=== PATIENT | male | born 1990 ===

== ENCOUNTER 2021-01-19 08:42 | Outpatient (CLI) | payer OTHER ==
--- NOTE | 2021-01-19 09:13 | SLEEP CARE CONSULTATION ---
Information from patient questionnaire entered by Lisa Norris. I have reviewed and concur with the information entered by Lisa Norris. This document represents the service I personally performed and the decisions made by me, Daisy Cline ARNP. History of Present Illness Service Date and Time: 01/19/2021 0842 Reason for Visit: New patient Chief Complaint: reports: Unrefreshed sleep, Snoring. denies: Excessive daytime sleepiness, Observed pauses in breathing, Fatigue, Frequent awakenings at night Date of Onset: about a year Usual bedtime: 11:30 pm Time it takes to fall asleep: less than 5 minutes Snores at night: Yes Observed to quit breathing while asleep: No Sleeps alone due to snoring: No Number of times waking at night: 1 Reasons for waking at night: reports: Bathroom. denies: Choking, Snoring, Gasping for air Toss, Turn, or Twitch while sleeping: Yes Recalls having dreams: Yes Usually gets out of bed at: 6:30 am Feels refreshed in the morning: No Morning headache: Yes (only lasts 20 minutes; 1 x a week) Sleepy or fatigued during the day: No Ever fallen asleep while driving: No Takes day naps: No Dreams during day naps: Yes Prior sleep studies: No Additional HPI information: I had the pleasure of seeing NICK GARYJOELDUNCAN today regarding the possibility of him having a sleep disorder. His current complaint is snoring. He also has had some morning headaches and unrefreshed sleep. His is concerned about his loud snoring. She is and due next week. She has to wear ear plugs to sleep in same bed. She will wake him to turn on his left side. He snores less on his left side than his back or right side. His snoring is louder when he is really tired. His parents both snored and his father had surgery to try to reduce snoring but it did not help, possible tonsillectomy. He denies medical problems and takes no medications currently. 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 Patient is and lives in [place]. Have you smoked in the past 12 months: Yes Cigarettes per day (20/pack): 4 Years of smokin Smoking Pack Years: 1.6 Alcohol use: Yes Alcohol amount and frequency: 1-2 drinks every other week Caffeine use: Yes Caffeine amount and frequency: 2 drinks every day Family History Family history of sleep disordered breathing: Yes (aunt snores) Family Hx Sleep Apnea: Mother: Snoring, Father: Snoring, Sleep apnea - Untreated, Other: Snoring Allergies and Home Medications Drug allergies reviewed: Yes (NKDA) Home medication list reviewed: Yes (no daily medications or supplements) Review of Systems Cardiovascular: denies: high blood pressure Gastrointestinal: denies: heartburn Neurological: denies: headaches Psychiatric: denies: Attention Deficit Hyperactivity, anxiety, depression, mood disorder Ear/Nose/Throat: reports: wisdom teeth removed. denies: tonsillectomy Endocrine: denies: thyroid disease Immunologic: denies: allergies to food or environment Physical Exam Blood Pressure: 123/81 Cuff size: wrist Heart Rate: 50 O2 Saturation: 97 Height: 5 ft 5 in Weight: 178 lb Body Mass Index: 29.6 BMI Classification: Overweight Neck circumference: 14.5 (inches) Nostrils: patent to airflow Mouth and throat: narrow oropharynx Soft palate: long Hard palate: arched Uvula: normal Uvula visualization: 50% Mallampati Class II Tongue: enlarged in size with teeth child on lateral edges Tonsils: 2+ Chin and jaw: normal size and position Neck: normal w/o lymphadenopathy or thyromegaly Heart: regular rate and rhythm Lungs: clear bilaterally Impression and Plan 1. Suspected Obstructive Sleep Apnea-Hypopnea Syndrome, as suggested by a history of loud and irregular snoring, morning headache, and unrefreshed sleep. Narrow oropharynx and obesity are common predisposing factors for obstructive sleep apnea-hypopnea syndrome. I recommend proceeding to polysomnography to confirm the diagnosis and to assess severity. If the patient has significant sleep disordered breathing, a manual CPAP titration study will also be performed to find the optimal treatment pressure. I informed the patient of what the sleep studies involve and after some discussion, obtained agreement to proceed. The pathophysiology of obstructive sleep apnea-hypopnea syndrome was discussed with the patient and health risks of cardiovascular and cerebrovascular disease if not treated. Risks of drowsy driving discussed in detail and patient advised to avoid long distance driving and to heat treat puller at the first sign of drowsiness. Patient agreed to plan. * Schedule polysomnography +- manual CPAP titration study and return in 1-2 weeks after the study to discuss result and initiate therapy. * Avoid long distance driving or driving when feeling sleepy. * Avoid alcohol, sedative and muscle relaxant around bedtime. * Attempt to lose weight. * Review instructions provided by trained office staff on how to prepare for the sleep study. * Return for follow-up after sleep study completed. Counseling Topics: Weight loss health impact Visit Type: In Office Time Spent with Patient (minutes): 30 Provider Statement: I spent 100% of the Face to Face Visit with the patient with greater than 50% spent counseling the patient and coordination of care.
[2021-01-19 09:14] VITALS: BP 123/81
== END 2021-01-19 08:43 | disposition home or self-care (01) ==
LOC: SC 08:42
PROVIDERS: ATTEND Nurse Practitioner Family
DX: G47.8 Other sleep disorders (principal); R51.9 Headache, unspecified; R06.83 Snoring; F17.210 Nicotine dependence, cigarettes, uncomplicated; E66.3 Overweight; Z68.29 Body mass index [BMI] 29.0-29.9, adult
CPT/HCPCS: 99203; 99212

== ENCOUNTER 2021-02-04 13:13 | Outpatient (CLI) | payer OTHER | END 2021-02-04 13:14 | disposition home or self-care (01) | LOC: SC 13:13 | PROVIDERS: ATTEND Nurse Practitioner Family | DX: R06.83 Snoring (principal); E66.3 Overweight; Z68.29 Body mass index [BMI] 29.0-29.9, adult | CPT/HCPCS: 95806 ==

== ENCOUNTER 2021-02-23 16:06 | Outpatient (CLI) | payer OTHER ==
--- NOTE | 2021-02-23 16:20 | SLEEP CARE CONSULTATION ---
Information from patient questionnaire entered by Deanna Roberts. I have reviewed and concur with the information entered by Deanna Roberts. This document represents the service I personally performed and the decisions made by , Daisy Cline ARNP. History of Present Illness Service Date and Time: 02/23/2021 1606 Initial [place] Sleepiness Scale score: 8 (in 2020) Current [place] Sleepiness Scale score: 6 Additional HPI information: NICK SILVA returns for follow up and results of the recently performed home sleep study. The patient was informed of the following findings: No significant sleep disordered breathing with AHI of 0.8 and shahid oxygen saturation of 89%. I explained the pathophysiology behind obstructive sleep apnea. Patient does not have sleep apnea and was advised how weight gain could increase the risk of developing sleep apnea in the future. I strongly encouraged the patient to lose weight. Patient has mild snoring. Snoring can be reduced by weight loss. Weight loss is best achieved with diet consult. Patient instructed to contact PCP for referral. Snoring can also be treated with an oral appliance from a dentist. Advised to check insurance coverage. In addition, an ENT evaluation can be do to see if other treatment is indicated. Patient counseled not drink alcohol less than 4 hours before bedtime as it can increase snoring and apnea. Patient was cautioned about risks of drowsy driving until sleepiness symptoms resolve. Sleep Study - Results Type of Sleep Study: Home sleep study Prior sleep studies: No Polysomnography/Home Sleep Study results: Physician Impression: The quality of the study is good. The length of the study is adequate (> 240 minutes). Please also see the tabulated and graphic data. 1. No significant sleep-disordered breathing, with an AHI of 0.8/hr and shahid SaO2 of 89%. During the study, the patient had 3 apneas (3 obstructive, 0 central, 0 mixed) and 1 hypopnea. The longest episode lasted 51.0 seconds. The patient slept adequately in supine position (supine AHI was 0.7 and non-supine, 0.83). 2. Hypoxemia (ICD-10 R09.02), minimal, with the lowest oxygen saturation of 89 % and 0.1 minutes with SaO2 under 90%. Baseline oxygen saturation was normal (Average oxygen saturation was 95%). Allergies and Home Medications Home medication list reviewed: Yes (no changes) Review of Systems Review of systems same as previous: Yes (no changes) Physical Exam Heart Rate: 60 O2 Saturation: 98 Height: 5 ft 5 in Weight: 176 lb Body Mass Index: 29.2 BMI Classification: Overweight Impression and Plan Snoring but no significant sleep disordered breathing. Patient is definitely more concerned about the snoring and reducing it. Patient advised that often weight loss will reduce snoring as well as apnea risk. An oral appliance can also be used for snoring. This would require a dental consultation. Patient cautioned not to use other online appliances as can cause bite issues. A list of accredited dentists in [facility] and one local dentist who makes oral appliances available in office. Patient is advised to check if insurance will cover. An ENT consult can also be helpful to determine if any other treatment is an option. * Attempt to lose weight * Avoid alcohol consumption near bedtime * The patient is cautioned about driving until sleepiness is completely resolved. * Return as needed for follow up. Counseling Topics: Weight loss health impact Visit Type: In Office Time Spent with Patient (minutes): 11 Provider Statement: I spent 100% of the Face to Face Visit with the patient with greater than 50% spent counseling the patient and coordination of care.
== END 2021-02-23 16:07 | disposition home or self-care (01) ==
LOC: SC 16:06
PROVIDERS: ATTEND Nurse Practitioner Family
DX: R06.83 Snoring (principal); R51.9 Headache, unspecified; G47.8 Other sleep disorders; F17.210 Nicotine dependence, cigarettes, uncomplicated; E66.3 Overweight; Z68.29 Body mass index [BMI] 29.0-29.9, adult
CPT/HCPCS: 99212

== ENCOUNTER 2021-05-18 21:16 | Emergency (ER) | payer OTHER ==
[2021-05-18 21:24] VITALS: BP 149/82
[2021-05-18] MEDS ORDERED: cefTRIAXone 1 GM VIAL IM STA (22:01)
[2021-05-18] MEDS ORDERED: LIDOCAINE 1% 2 ML VIAL MC ONE (22:01)
[2021-05-18] MEDS ORDERED: AMOX/CLAV 875 MG/125 MG TABLET PO STA (22:02)
--- NOTE | 2021-05-18 22:04 | ED Physician Documentation ---
History of Present Illness - Stated complaint Stated Complaint: CAT BITES - Chief complaint Chief Complaint: Laceration - Additonal information Additional information: 30-year-old male presents emergency department for evaluation of a cat bite wound to his left hand. He was trying to feed his cat at home who has not been feeding well and the cat became angry and bit him. He house to puncture wounds. One on the dorsum of his hand near the MCP of the index finger and another between the MCP joints of the index and middle finger. He did not think much of this wound initially but as it is gone on he has developed some progressive erythema and tenderness. No drainage. No history of similar. This patient's Vaccines are up-to-date and patient's tetanus is up-to-date. Patient is right-hand dominant. Review of Systems Constitutional: reports: Reviewed and negative Eyes: reports: Reviewed and negative Nose: reports: Reviewed and negative Cardiac: reports: Reviewed and negative Respiratory: reports: Reviewed and negative Skin: reports: Other (Cat bite wound dorsum of left hand) PD PAST MEDICAL HISTORY - Present Medications Home Medications: Ambulatory Orders Medication Instructions Recorded Confirmed Amox/Clav 875/125 [Augmentin] 1 each PO Q12H #20 tablet 05/18/21 - Allergies Allergies/Adverse Reactions: Allergies Allergy/AdvReac Type Severity Reaction Status Date / Time No Known Drug Allergies Allergy Verified 05/18/21 21:24 PD ED PE EXPANDED - Extremities Extremities: Left hand (Swelling and erythema on the dorsum of the left hand that extends from the base of the MCP Of the index finger to the MCP of the thumb. Tenderness to palpation. No drainage. Patient is able to make a full grasp and extend fingers fully. ), Other (No tenderness along the flexor tendons of the left index or middle finger. No pain with passive extension though there is pain with active flexion.) Results - Vitals Vitals: Vital Signs - 24 hr 05/18/21 21:21 Temperature 36.6 C Heart Rate 76 Respiratory 16 Rate Blood Pressure 149/82 H O2 Saturation 98 Oxygen O2 Source Room air - Rads (name of study) right hand Radiology: EMP read indepedently (soft tissue swelling; no foreign body) PD MEDICAL DECISION MAKING - ED course Complexity details: d/w patient ED course: 30-year-old male presents emergency department for evaluation of a left hand cat bite wound sustained this morning. Patient's tetanus is up-to-date. He has developed swelling mostly along the dorsum of the hand. There are no secondary signs at this time to suggest flexor tenosynovitis. Patient was given a gram of ceftriaxone and Augmentin here in the emergency department and will be discharged with Augmentin for 10 days. Will recommend warm compress on the hand. Discussed that if symptoms worsen or get signs of tenosynovitis he should return immediately to the ER or an ER with appropriate hand surgery. Departure - Departure Disposition: 01 Home, Self Care Clinical Impression: Cellulitis of left hand Cat bite of hand Qualifiers: Encounter type: initial encounter Laterality: left Qualified Code(s): S61.452A - Open bite of left hand, initial encounter; W55.01XA - Bitten by cat, initial encounter Condition: Stable Record reviewed to determine appropriate education?: Yes Instructions: Cellulitis Dc, ED Bite Cat Prescriptions: Amox/Clav 875/125 [Augmentin] 1 each PO Q12H #20 tablet Comments: Sadiq gonsalves were seen in the emergency department today for a cat bite wound on your left hand. The x-ray does not show any broken teeth in your hand. However you do have early bacterial infection or cellulitis. In some cases infection from cat bites can lead to infection around the tendons or joint. You were given your first doses of antibiotics here in the emergency department. Tomorrow morning you must fill the prescription for the Augmentin and begin taking twice daily for the next 10 days. It is important that you please a warm compress on your left hand for 10 minutes 3 times a day. If despite the antibiotics you have any increased redness, fevers red streaking worsening pain or milky drainage please return immediately to the ER.
--- NOTE | 2021-05-19 08:19 | XRAY Report ---
PROCEDURE: Hand 2 View LT INDICATIONS: cat bite; r/o fb TECHNIQUE: 2 views of the hand(s) acquired. COMPARISON: None FINDINGS: Bones: No fractures or dislocations. No suspicious bony lesions. Soft tissues: No suspicious soft tissue calcifications. No radiodense foreign bodies. IMPRESSION: No fracture. No osseous lesion. If there are persistent symptoms or continued clinical concern for pa thology, then repeat plain film radiographs (7-10 days) or advanced imaging (CT, MR, bone scan) shoul d be considered for further evaluation. Reviewed by: Felecia Preciado MD, PhD on 05/19/2021 8:17 AM PDT Approved by: Felecia Preciado MD, PhD on 05/19/2021 8:17 AM PDT Station ID: [id number]
== END 2021-05-18 22:44 | disposition home or self-care (01) ==
LOC: ED 21:16
DX: L03.114 Cellulitis of left upper limb (principal); W55.01XA Bitten by cat, initial encounter
CPT/HCPCS: 73120; 99281; 99283; A9270

== ENCOUNTER 2021-10-03 08:00 | Outpatient (CLI) | payer OTHER | END 2021-10-03 23:59 | LOC: LAB 08:00 | PROVIDERS: ATTEND Physician Assistant Medical | DX: U07.1 COVID-19 (principal) ==

== ENCOUNTER 2023-08-22 08:46 | Emergency (ER) | payer OTHER ==
[2023-08-22] MEDS ORDERED: diphenhydrAMINE INJ 50 MG/ML VIAL IM STA (12:00)
[2023-08-22] MEDS ORDERED: KETOROLAC 60 MG/2 ML VIAL IM STA (12:00)
[2023-08-22] MEDS ORDERED: DROPERIDOL 5 MG/2 ML VIAL IM STA (12:00)
--- NOTE | 2023-08-22 12:03 | ED Physician Documentation ---
History of Present Illness - Stated complaint Stated Complaint: CARDENAS,SORE THROAT - Chief complaint Chief Complaint: Neuro - History obtained from History obtained from: Patient - History of Present Illness Timing: How many days ago (Gradual onset x 3 days) Pain level max: 7 Pain level now: 7 - Additonal information Additional information: Patient is a 33-year-old male who presents to the emergency department left- sided headache for 3 days. Worse with eating, drinking. He states he has sensitivity to light and sound. Took Aleve x 1 without relief. No history of headaches. No trauma. No fevers. No chills. No nausea or vomiting. Denies any dental pain. No ear pain. He does vape. No vision changes. Denies any medications at home. Denies any other drug use. No numbness or tingling. No focal neurological deficits. Review of Systems Constitutional: denies: Fever, Chills Eyes: reports: Photophobia Ears: denies: Ear pain Nose: denies: Rhinorrhea / runny nose, Congestion Throat: denies: Sore throat Cardiac: denies: Chest pain / pressure, Palpitations Respiratory: denies: Dyspnea, Cough GI: denies: Abdominal Pain, Nausea, Vomiting, Diarrhea Skin: denies: Rash Musculoskeletal: denies: Neck pain, Back pain Neurologic: denies: Focal weakness, Numbness, Seizure, Confused, LOC PD PAST MEDICAL HISTORY - Past Medical History Past Medical History: Yes Cardiovascular: None Respiratory: None Neuro: None Endocrine/Autoimmune: None GI: None : None HEENT: None Psych: None Musculoskeletal: None Derm: None - Past Surgical History Past Surgical History: No - Present Medications Home Medications: Ambulatory Orders Medication Instructions Recorded Confirmed Amox/Clav 875/125 [Augmentin] 1 tab PO Q12H #20 tablet 08/22/23 Cetirizine HCl/Pseudoephedrine 1 tab PO BID PRN #20 tab 08/22/23 [Zyrtec-D ER 5 mg-120 mg Tablet] HYDROcod/ACETAM 5/325 [[place] 5/325] 1 - 2 ea PO Q6H PRN #10 tablet 08/22/23 predniSONE [Deltasone] 40 mg PO DAILY #10 tablet 08/22/23 - Allergies Allergies/Adverse Reactions: Allergies Allergy/AdvReac Type Severity Reaction Status Date / Time No Known Drug Allergies Allergy Verified 08/22/23 09:05 - Social History Does the pt smoke?: No Smoking Status: Never smoker Does the pt drink ETOH?: No Does the pt have substance abuse?: No - Immunizations Immunizations are current?: Yes - POLST Patient has POLST: No PD ED PE NORMAL - Vitals Vital signs reviewed: Yes - General General: Alert and oriented X 3, No acute distress - HEENT HEENT: Atraumatic, PERRL, EOMI, Ears normal, Moist mucous membranes, Pharynx benign, Other (mild sinus tenderness over the frontal or maxillary sinuses) - Neck Neck: Supple, no meningeal sign - Cardiac Cardiac: RRR, Strong equal pulses - Respiratory Respiratory: No respiratory distress, Clear bilaterally - Abdomen Abdomen: Soft, Non tender, Non distended - Back Back: No spinal TTP - Derm Derm: Warm and dry - Extremities Extremities: No edema, No calf tenderness / cord - Neuro Neuro: Alert and oriented X 3, 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 Headache greatly improved with self and some pressure behind the left eye, suspect ethmoid sinusitis. We will place on antibiotics, decongestants, steroids and pain medication for home. Will have him follow-up with his doctor for further care. No fevers. Patient is well-appearing, nontoxic. Gradual onset headache. No evidence of a subarachnoid hemorrhage. No evidence of tumor or mass. No neurological deficits. Patient counseled regarding signs and symptoms for which I believe and urgent re-evaluation would be necessary. Patient with good understanding of and agreement to plan and is comfortable going home at this time This document was made in part using voice recognition software. While efforts are made to proofread this document, sound alike and grammatical errors may occur. Departure - Departure Disposition: 01 Home, Self Care Clinical Impression: Headache Qualifiers: Headache type: unspecified Headache chronicity pattern: acute headache Intractability: not intractable Qualified Code(s): R51.9 - Headache, unspecified Sinusitis Qualifiers: Sinusitis location: ethmoidal Chronicity: acute Recurrence: non-recurrent Qualified Code(s): J01.20 - Acute ethmoidal sinusitis, unspecified Condition: Good Instructions: ED Headache Sinus, ED Sinusitis Abx Tx Follow-Up: NICK PARIS MD [Primary Care Provider] - Within 1 week Prescriptions: Amox/Clav 875/125 [Augmentin] 1 tab PO Q12H #20 tablet predniSONE [Deltasone] 40 mg PO DAILY #10 tablet HYDROcod/ACETAM 5/325 [[place] 5/325] 1 - 2 ea PO Q6H PRN #10 tablet PRN Reason: Pain Cetirizine HCl/Pseudoephedrine [Zyrtec-D ER 5 mg-120 mg Tablet] 1 tab PO BID PRN #20 tab PRN Reason: nasal congestion Comments: Your prescriptions were sent to [facility] in [place]. Please follow-up with your doctor for further care. Please return if you worsen. I suspect that this is your ethmoid sinus causing your headache and pain. This should improve with the medication over the next few days. Take all antibiotics until gone even if you are feeling better. I am prescribing a short course of narcotic pain medication for you. These are potentially dangerous and addictive medications that should be used carefully. These medications may constipate you. Take an iibb-jbt-homjfcu stool softener ( docusate) twice daily with plenty of water while taking these medications. If you go 24 hours without a bowel movement, take [id number] miralax, per package instructions. Do not drink or drive while taking these medications. If you received narcotic or sedating medications while in the emergency department, do not drive for 24 hours. Store this medication in a safe, secure place and out of reach of children. It is a violation of federal law to give or sell this medication to another person or to use in a manner other than prescribed. The ED will not refill narcotic prescriptions, including prescriptions lost or stolen. To dispose of unwanted medications: 1. [facility] at [address] in [place] has a medication drop box. They accept prescription medications (in pill form) Sunday through Sunday 9:00 a.m. to 5:00 p.m. 2. The [facility] [employer] accepts prescription medications (in pill form only) for disposal year round. Call for more information. 3. Contact the [facility] for the next [facility] sponsored prescription drug collection event. , [phone], or [phone]; Forms: PCP List
[2023-08-22 13:11] VITALS: BP 179/81; O2SAT 99
== END 2023-08-22 13:04 | disposition home or self-care (01) ==
LOC: ED 08:46
DX: J01.20 Acute ethmoidal sinusitis, unspecified (principal); R51.9 Headache, unspecified
CPT/HCPCS: 96372; 99283; J1200

== ENCOUNTER 2023-08-25 14:26 | Outpatient (CLI) | payer OTHER | END 2023-08-25 14:27 | disposition critical access hospital (66) | LOC: EMS 14:26 | DX: R46.89 Other symptoms and signs involving appearance and behavior (principal); R46.4 Slowness and poor responsiveness | CPT/HCPCS: A0425; A0427 ==

== ENCOUNTER 2023-08-25 14:47 | Emergency (ER) | payer OTHER ==
--- NOTE | 2023-08-25 15:02 | ED Physician Documentation ---
PD HPI ALTERED MENTAL STATUS - Stated complaint Stated Complaint: WEAKNESS/AMS - Chief complaint Chief Complaint: Neuro - History obtained from History obtained from: Patient, Family, EMS - History of Present Illness Timing - onset: How many days ago (2) Timing - duration: Days (2) Timing - details: Gradual onset, Still present Quality / character: Less responsive Associated symptoms: General weakness (? not endorsed by patient) Contributing factors: New medication (abx, decongestant, steroid and narcotic.) Basline status: Alert and oriented X 3, Ambulatory, Independent Similar symptoms before: Has not had sx before Recently seen: Emergency Dept - Additional information Additional information: Sadiq Chauhan is a 33-year-old male was recently diagnosed with sinusitis in the emergency department placed on Augmentin prednisone decongestant and narcotic pain reliever. He had presented to the emergency department with headache. He is now denying any specific symptoms but his has called 911 as she has noted the patient is less responsive than normal is not interacting normally with her and the patient himself as a historian appears oriented but does not feel that he has a problem. He shrugs his shoulders. He has a blunted affect and speech latency. Review of Systems Constitutional: denies: Fever Eyes: denies: Decreased vision Ears: denies: Ear pain Nose: denies: Rhinorrhea / runny nose, Congestion Throat: denies: Sore throat Cardiac: denies: Chest pain / pressure, Palpitations Respiratory: denies: Dyspnea, Cough GI: denies: Abdominal Pain, Nausea, Vomiting, Constipation, Diarrhea : denies: Dysuria, Frequency PD PAST MEDICAL HISTORY - Past Medical History Past Medical History: No Cardiovascular: None Respiratory: None Neuro: None Endocrine/Autoimmune: None GI: None : None HEENT: None Psych: None Musculoskeletal: None Derm: None - Past Surgical History Past Surgical History: No - Present Medications Home Medications: Ambulatory Orders Medication Instructions Recorded Confirmed Amox/Clav 875/125 [Augmentin] 1 tab PO Q12H #20 tablet 08/22/23 Cetirizine HCl/Pseudoephedrine 1 tab PO BID PRN #20 tab 08/22/23 [Zyrtec-D ER 5 mg-120 mg Tablet] HYDROcod/ACETAM 5/325 [[place] 5/325] 1 - 2 ea PO Q6H PRN #10 tablet 12/06/23 predniSONE [Deltasone] 40 mg PO DAILY #10 tablet 08/22/23 - Allergies Allergies/Adverse Reactions: Allergies Allergy/AdvReac Type Severity Reaction Status Date / Time No Known Drug Allergies Allergy Verified 08/22/23 09:05 - Social History Does the pt smoke?: No Smoking Status: Never smoker Does the pt drink ETOH?: No Does the pt have substance abuse?: No - Immunizations Immunizations are current?: Yes - POLST Patient has POLST: No PD ED PE NORMAL - Vitals Vital signs reviewed: Yes - General General: Alert and oriented X 3, No acute distress, Well developed/nourished, Other (affect is flat interaction has 1 second speech latency and has some mild delay in execution of motor commands. ) - HEENT HEENT: Atraumatic, PERRL, EOMI, Ears normal, Moist mucous membranes, Pharynx benign, Dentition benign, Other (There is an asymetric smile less motor tone on the right. The patient indicates this is his normal smile when shown his face on iphone. ) - Neck Neck: Supple, no meningeal sign, No bony TTP - Cardiac Cardiac: RRR, No murmur - Respiratory Respiratory: No respiratory distress, Clear bilaterally - Abdomen Abdomen: Soft, Non tender - Back Back: No CVA TTP, No spinal TTP - Derm Derm: Normal color, Warm and dry, No rash - Extremities Extremities: No deformity, No edema - Neuro Neuro: Alert and oriented X 3, director of music 2-12 intact, No motor deficit, No sensory deficit, Normal speech Eye Opening: Spontaneous Motor: Obeys Commands Verbal: Oriented GCS Score: 15 - Psych Psych: Normal mood, Normal affect Results - Vitals Vitals: Vital Signs - 24 hr 08/25/23 14:56 Temperature 36.8 C Heart Rate 88 Respiratory 16 Rate Blood Pressure 148/81 H O2 Saturation 99 Oxygen O2 Source Room air - Labs Labs: Laboratory Tests 08/25/23 08/25/23 08/25/23 15:06 15:06 15:06 WBC 13.6 H RBC 4.27 L Hgb 13.8 L Hct 38.9 L MCV 91.1 MCH 32.3 H MCHC 35.5 RDW 11.5 L Plt Count 191 MPV 9.9 Neut # (Auto) Not Reportable Lymph # (Auto) Not Reportable [place] # (Auto) Not Reportable Eos # (Auto) Not Reportable Baso # (Auto) Not Reportable Absolute Nucleated RBC Not Reportable Total Counted 100 Band Neuts % (Manual) 1 Reactive Lymphs % (Man) 9 Abnorm Lymph % (Manual) 0 Nucleated RBC % Not Reportable Neutrophils # (Manual) 9.5 H Lymphocytes # (Manual) 2.4 Monocytes # (Manual) 1.6 H Eosinophils # (Manual) 0.0 Basophils # (Manual) 0.0 Differential Comment MANUAL DIFFERENTIAL Platelet Estimate NORMAL (130-450,000) Platelet Morphology NORMAL APPEARANCE RBC Morph Micro Appear NORMAL APPEARANCE Sodium 121 L Potassium 3.7 Chloride 86 L Carbon Dioxide 28 Anion Gap 7.0 BUN 13 Creatinine 0.8 Estimated GFR (MDRD) 111 Glucose 138 H Lactic Acid 1.9 Calcium 8.8 Total Bilirubin 0.9 AST 17 ALT 21 Alkaline Phosphatase 59 Total Protein 7.1 Albumin 4.2 Globulin 2.9 Albumin/Globulin Ratio 1.4 Lipase 27 TSH Random Cortisol Urine Color Urine Clarity Urine pH Ur Specific [place] Urine Protein Urine Glucose (UA) Urine Ketones Urine Occult Blood Urine Nitrite Urine Bilirubin Urine Urobilinogen Ur Leukocyte Esterase Urine RBC Urine WBC Ur Squamous Epith Cells Urine Bacteria Ur Microscopic Review Urine Culture Comments Urine Sodium Urine Opiates Screen Ur Buprenorphine Scrn Ur Oxycodone Screen Urine Methadone Screen Ur Barbiturates Screen Ur Tricyclics Screen Ur Phencyclidine Scrn Ur Amphetamine Screen U Methamphetamines Scrn U Benzodiazepines Scrn Urine Cocaine Screen U Cannabinoids Screen Ur Drug Screen Comment 08/25/23 08/25/23 08/25/23 15:06 15:24 17:44 WBC RBC Hgb Hct MCV MCH MCHC RDW Plt Count MPV Neut # (Auto) Lymph # (Auto) [place] # (Auto) Eos # (Auto) Baso # (Auto) Absolute Nucleated RBC Total Counted Band Neuts % (Manual) Reactive Lymphs % (Man) Abnorm Lymph % (Manual) Nucleated RBC % Neutrophils # (Manual) Lymphocytes # (Manual) Monocytes # (Manual) Eosinophils # (Manual) Basophils # (Manual) Differential Comment Platelet Estimate Platelet Morphology RBC Morph Micro Appear Sodium 122 L Potassium 3.5 Chloride 88 L Carbon Dioxide 27 Anion Gap 7.0 BUN 14 Creatinine 0.7 Estimated GFR (MDRD) 129 Glucose 123 H Lactic Acid Calcium 8.9 Total Bilirubin AST ALT Alkaline Phosphatase Total Protein Albumin Globulin Albumin/Globulin Ratio Lipase TSH 0.85 Random Cortisol 21.2 Urine Color Urine Clarity Urine pH Ur Specific [place] Urine Protein Urine Glucose (UA) Urine Ketones Urine Occult Blood Urine Nitrite Urine Bilirubin Urine Urobilinogen Ur Leukocyte Esterase Urine RBC Urine WBC Ur Squamous Epith Cells Urine Bacteria Ur Microscopic Review Urine Culture Comments Urine Sodium 52.0 Urine Opiates Screen Ur Buprenorphine Scrn Ur Oxycodone Screen Urine Methadone Screen Ur Barbiturates Screen Ur Tricyclics Screen Ur Phencyclidine Scrn Ur Amphetamine Screen U Methamphetamines Scrn U Benzodiazepines Scrn Urine Cocaine Screen U Cannabinoids Screen Ur Drug Screen Comment 08/25/23 18:22 WBC RBC Hgb Hct MCV MCH MCHC RDW Plt Count MPV Neut # (Auto) Lymph # (Auto) [place] # (Auto) Eos # (Auto) Baso # (Auto) Absolute Nucleated RBC Total Counted Band Neuts % (Manual) Reactive Lymphs % (Man) Abnorm Lymph % (Manual) Nucleated RBC % Neutrophils # (Manual) Lymphocytes # (Manual) Monocytes # (Manual) Eosinophils # (Manual) Basophils # (Manual) Differential Comment Platelet Estimate Platelet Morphology RBC Morph Micro Appear Sodium Potassium Chloride Carbon Dioxide Anion Gap BUN Creatinine Estimated GFR (MDRD) Glucose Lactic Acid Calcium Total Bilirubin AST ALT Alkaline Phosphatase Total Protein Albumin Globulin Albumin/Globulin Ratio Lipase TSH Random Cortisol Urine Color YELLOW Urine Clarity HAZY Urine pH 6.5 Ur Specific [place] 1.015 Urine Protein 100 H Urine Glucose (UA) NEGATIVE Urine Ketones NEGATIVE Urine Occult Blood MODERATE H Urine Nitrite NEGATIVE Urine Bilirubin NEGATIVE Urine Urobilinogen 1 (NORMAL) Ur Leukocyte Esterase NEGATIVE Urine RBC 11-25 H Urine WBC 0-3 Ur Squamous Epith Cells RARE Squamous Urine Bacteria Rare Ur Microscopic Review INDICATED Urine Culture Comments NOT INDICATED Urine Sodium Urine Opiates Screen NEGATIVE Ur Buprenorphine Scrn NEGATIVE Ur Oxycodone Screen NEGATIVE Urine Methadone Screen NEGATIVE Ur Barbiturates Screen NEGATIVE Ur Tricyclics Screen NEGATIVE Ur Phencyclidine Scrn NEGATIVE Ur Amphetamine Screen NEGATIVE U Methamphetamines Scrn NEGATIVE U Benzodiazepines Scrn NEGATIVE Urine Cocaine Screen NEGATIVE U Cannabinoids Screen NEGATIVE Ur Drug Screen Comment CUTOFF CONC BELOW: - Rads (name of study) Sinus CT Relevant Findings:: Prelim report reviewed (Impression: Mild sinus disease as above most prominent within the ethmoid sinuses.), EMP independent interpretation of test, See rad report head CT Relevant Findings:: Prelim report reviewed (Impression no acute intracranial pathology.) Procedures - IVC sono (time) 1550 Bedside IVC sono: IVC measures (cm) (1.72), IVC collapsed c insp (cm) (1.26), Euvolemia PD Medical Decision Making - ED course Complexity details: reviewed old records, reviewed results, re-evaluated patient, considered differential, d/w patient Reviewed Lab Results: We reviewed a complete blood cell count showing an elevated white blood cell count of 13.6 hemoglobin and hematocrit were mildly depressed at 13.8 and 38.9 platelets are normal at 191,000 the differential shows an excess of neutrophils and monocytes we have no comparisons for this patient previously. Chemistries showed a serum sodium of 121 a potassium of 3.7 chloride of 86 BUN of 13 creatinine 0.8 glucose of 138. Lactate was normal at 1.9 liver function normal.The TSH was normal at 0.85 random cortisol normal at 21.2. Urine sodium was elevated at 52 urinalysis shows moderate occult blood and 11-25 red blood cells per high-powered field no evidence of infection with a specific gravity of 1.015 toxicology is negative. A second chemistry panel shows an improved sodium of 122 1 whole point, similar with chloride at 88. My interpretation of these laboratory values in this 33-year-old male with an altered level of consciousness is that his hyponatremia is likely the cause of his altered mentation. In the workup of the hyponatremia the patient appears euvolemic on interrogation of the IVC with POCUS, he has normal TSH and cortisol levels. He does have elevated urine sodium at 52. 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 An etiology for his SIADH is not apparent initially. ED course: 33-year-old male with hyponatremia of 121 has a blunted affect and speech latency and does appear altered. 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 He is treated in the emergency department with 150 mL of 3% saline bringing his sodium up only one point. A second bolus is administered. At shift change his care is turned over to Dr. Lanier with a second bolus of hypertonic saline and further evaluation pending. Departure - Departure Disposition: 66 [facility] DC/Xfer Clinical Impression: Hyponatremia Altered mental status Qualifiers: Altered mental status type: stupor Qualified Code(s): R40.1 - Stupor Forms: PCP List
[2023-08-25 15:10] LABS: BASOPHILS % (AUTO) 0.2 %; EOSINOPHILS % (AUTO) 0.1 %; HCT - HEMATOCRIT 38.9 % (42.0-52.0); HGB - HEMOGLOBIN 13.8 g/dL (14.0-18.0); LYMPHOCYTES % (AUTO) 15.8 %; MEAN CORPUSCULAR HEMOGLOBIN 32.3 pg (27.0-31.0); MEAN CORPUSCULAR HGB CONC 35.5 g/dL (32.0-36.0); MEAN CORPUSCULAR VOLUME 91.1 fL (80.0-94.0); MEAN PLATELET VOLUME 9.9 fL (7.4-11.4); MONOCYTES % (AUTO) 12.4 %; NEUTROPHILS % (AUTO) 71.1 %; PLT - PLATELET COUNT 191 10^3/uL (130-450); RED BLOOD COUNT 4.27 10^6/uL (4.70-6.10); RED CELL DISTRIBUTION WIDTH 11.5 % (12.0-15.0); WHITE BLOOD COUNT 13.6 x10^3/uL (4.8-10.8)
[2023-08-25 15:14] LABS: ABNORMAL LYMPHS % (MANUAL) 0 %
[2023-08-25 15:24] LABS: ALBUMIN 4.2 g/dL (3.2-5.5); ALBUMIN/GLOBULIN RATIO 1.4 (1.0-2.2); BILIRUBIN,TOTAL 0.9 mg/dL (0.2-1.0); CALCIUM 8.8 mg/dL (8.5-10.3); CREATININE 0.8 mg/dL (0.6-1.3); POTASSIUM 3.7 mmol/L (3.5-4.5); TOTAL PROTEIN 7.1 g/dL (6.4-8.9)
[2023-08-25 15:37] LABS: BAND NEUTROPHILS % (MANUAL) 1 %; DIFFERENTIAL COMMENT MANUAL DIFFERENTIAL; LYMPHOCYTES # (MANUAL) 2.4 10^3/uL (1.5-3.5); LYMPHOCYTES % (MANUAL) 9 %; MONOCYTES # (MANUAL) 1.6 10^3/uL (0.0-1.0); NEUTROPHILS # (MANUAL) 9.5 10^3/uL (1.5-6.6); PLATELET ESTIMATE, MANUAL NORMAL (130-450,000) (NORMAL); PLATELET MORPHOLOGY NORMAL APPEARANCE (NORMAL); RBC MORPHOLOGY (MULTIPLE) NORMAL APPEARANCE (NORMAL); REACTIVE LYMPHS % (MANUAL) 9 %
[2023-08-25 16:17] LABS: THYROID STIMULATING HORMONE 0.85 uIU/mL (0.34-5.60)
[2023-08-25 18:28] LABS: BILIRUBIN,URINE NEGATIVE (NEGATIVE); GLUCOSE, URINE (UA) NEGATIVE (NEGATIVE); KETONES,URINE (UA) NEGATIVE (NEGATIVE); LEUKOCYTE ESTERASE, URINE NEGATIVE (NEGATIVE); NITRITE,URINE NEGATIVE (NEGATIVE); OCCULT BLOOD,URINE MODERATE (NEGATIVE); PH,URINE 6.5 PH (5.0-7.5); PROTEIN,URINE 100 mg/dL (NEGATIVE); UROBILINOGEN,URINE 1 (NORMAL) E.U./dL (NORMAL)
--- NOTE | 2023-08-25 18:37 | CT Report ---
PROCEDURE: HEAD WO INDICATIONS: headache, hyponatremia, symptomatic TECHNIQUE: Noncontrast 4.5 mm thick angled axial sections acquired from the foramen magnum to the vertex. For r adiation dose reduction, the following was used: automated exposure control, adjustment of mA and/or kV according to patient size. COMPARISON: Images are degraded by patient motion. FINDINGS: Image quality: Excellent. CSF spaces: Basal cisterns are patent. No extra-axial fluid collections. Ventricles are normal in size and shape. Brain: No midline shift. No intracranial masses or hemorrhage. Burgess-white matter interface is norm al. Skull and face: Calvarium and visualized facial bones are intact, without suspicious lesions. Sinuses: Mucosal thickening of the ethmoid sinuses.. IMPRESSION: No acute intracranial pathology. Reviewed by: Addison Cummings MD on 08/25/2023 5:36 PM [facility] [[email or web address]] Approved by: Addison Cummings MD on 08/25/2023 5:36 PM [facility] [[email or web address]] Station ID: [id number]
[2023-08-25 18:39] LABS: CALCIUM 8.9 mg/dL (8.5-10.3); CREATININE 0.7 mg/dL (0.6-1.3); POTASSIUM 3.5 mmol/L (3.5-4.5)
[2023-08-25 18:39] LABS: BACTERIA,URINE Rare /HPF (None Seen); CLARITY,URINE HAZY (CLEAR); SQUAMOUS EPITHELIAL CELL,UR RARE Squamous (<= Few); WBC,URINE 0-3 /HPF (0-3)
[2023-08-25 18:40] LABS: AMPHETAMINE SCREEN,URINE NEGATIVE (NEGATIVE); BARBITURATE SCREEN,UR NEGATIVE (NEGATIVE); BENZODIAZEPINES SCREEN, URINE NEGATIVE (NEGATIVE); BUPRENORPHINE SCREEN, URINE NEGATIVE (NEGATIVE); COCAINE SCREEN URINE NEGATIVE (NEGATIVE); METHADONE SCREEN, URINE NEGATIVE (NEGATIVE); METHAMPHETAMINES SCREEN, URINE NEGATIVE (NEGATIVE); OPIATE SCREEN, URINE NEGATIVE (NEGATIVE); OXYCODONE SCREEN, URINE NEGATIVE (NEGATIVE); THC CANNABINOID SCREEN, URINE NEGATIVE (NEGATIVE); TRICYCLIC ANTIDEPRESSANT,URINE NEGATIVE (NEGATIVE)
--- NOTE | 2023-08-25 18:40 | CT Report ---
PROCEDURE: SINUS SCREENING WO INDICATIONS: sinusitis with altered LOC TECHNIQUE: Noncontrast 3.0 mm axial images acquired from the frontal sinuses to the mid-sella, with coronal and sagittal reformats. For radiation dose reduction, the following was used: automated exposure control , adjustment of mA and/or kV according to patient size. COMPARISON: None. FINDINGS: Image quality: Excellent. Maxillary Sinuses: No bony remodeling or destruction. Left inferior maxillary mucosal thickening.. Ethmoid Air Cells: Partial opacification of the ethmoid air cells Sphenoid Sinuses: No bony remodeling or destruction. Sinuses are clear. Frontal Sinuses: No bony remodeling or destruction. Opacification of frontal ethmoidal recesses with slight inferior mucosal thickening.. Ostiomeatal Complexes: Ostiomeatal complexes are patent. No Leanna cells. Miscellaneous: Visualized intra-orbital contents are normal. No christian bullosa. No nasal septal d eviation. IMPRESSION: Mild sinus disease as above most prominent within the ethmoid sinuses. Reviewed by: Addison Cummings MD on 08/25/2023 5:39 PM [place] Approved by: Addison Cummings MD on 08/25/2023 5:39 PM [place] Station ID: [id number]
[2023-08-25] MEDS ORDERED: ACETAMINOPHEN 500 MG TABLET PO STA (18:53)
[2023-08-25] MEDS ORDERED: BUFFERED LIDOCAINE 10 ML SYRINGE SUBQ STA (19:00)
[2023-08-25] MEDS ORDERED: LIDOCAINE 1%-EPI 1:100000 20 ML MDV SUBQ STA (19:00)
--- NOTE | 2023-08-25 19:03 | ED Physician Documentation ---
ED Addendum - Addendum Addendum: 08/25/23 19:[address] Olguin at 7 PM shift change. at the bedside History obtained from . He had had a headache for few days and was seen by my partner on the sixth of this month and diagnosed with a sinus infection. He was given steroids, Augmentin, hydrocodone and decongestant. Since then he has been progressively confused. The initially assumed it was related to the pain medication but he is been especially confused over the last 24 hours and at this time was noted to be febrile by the nurse. The patient appears well but is quite confused. He denies headache and has no neck stiffness. That said given the findings of hyponatremia and concern for SIADH meningitis must be considered. We also performed a chest x-ray which does not show a mass or pneumonia. Head CT and sinus CT were negative except for mild sinus disease in the ethmoid sinuses. Discussed with need to perform lumbar puncture and she is agreeable. She states that prior to all of this he was a very healthy man. 08/25/23 19:18 Lumbar puncture done after verbal consent from . He was laying on his left hip and anesthetized prepped and draped with iodine. Accessed at L3-L4 and clear fluid obtained and sent for usual studies. 08/25/23 20:05 CSF reported and white count is 118, predominantly lymphocytes. Pattern most consistent with a viral meningitis. He had already received Rocephin and I will add acyclovir. 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 08/25/23 20:[address] Webb, neurology resident and [facility]. He will discuss with staff and call me back. 08/25/23 21:19 The above neurology resident called me back after discussing with his staff and they are declining transport stating it is too far for transport. I did mention that most of the closer hospitals are full and he may end up boarding in the emergency department for a prolonged length of time which would also be unsafe if they declined the patient but they persistently declined to the patient. I will have the RAYON WINDER call closer facilities with neurology. 08/25/23 22:[address] Bray, neurology at [facility], she feels it is appropriate for this patient, but there and does request that if any CSF is remaining and accompany him so they can run special studies on it. We are awaiting a callback from the hospitalist. Care to Dr. Bangura pending that. Diagnoses: 1. confusion 2. Hyponatremia 3. Viral meningitis or encephalitis Dispo: Transferred to higher level of care Condition: Stable
--- NOTE | 2023-08-25 19:05 | XRAY Report ---
PROCEDURE: Chest 1 View X-Ray INDICATIONS: hyponatremia TECHNIQUE: One view of the chest was acquired. COMPARISON: None. FINDINGS: Surgical changes and devices: None. Lungs and pleura: No pleural effusions or pneumothorax. Lungs are clear. Mediastinum: Mediastinal contours appear normal. Heart size is normal. Bones and chest wall: No suspicious bony lesions. Overlying soft tissues appear unremarkable. IMPRESSION: No acute cardiopulmonary process. Reviewed by: Ashwin Berger MD on 08/25/2023 7:04 PM [facility] Approved by: Ashwin Berger MD on 08/25/2023 7:04 PM [facility] Station ID: [id number]
[2023-08-25] MEDS ORDERED: cefTRIAXone 2 GM VIAL IVP STA (19:19)
[2023-08-25 19:45] LABS: CSF - GLUCOSE 77 mg/dL (45-70); TOTAL PROTEIN,CSF 70 mg/dL (15-45)
[2023-08-25 19:56] LABS: CLARITY,CSF CLEAR (CLEAR); COLOR,CSF COLORLESS (COLORLESS); CSF TUBE # CSF TUBE# 3; CSF XANTHOCHROMIA ABSENT (ABSENT)
[2023-08-25 19:57] LABS: LYMPHOCYTES,CSF 66 % (40-80); MONOCYTES,CSF 30 % (15-45); NEUTROPHILS,CSF 4 % (0-6); RED BLOOD CELL,CSF 2 /mm^3 (0-1)
[2023-08-25 19:59] LABS: WHITE BLOOD CELL,CSF 118 /mm^3 (0-5)
[2023-08-25] MEDS ORDERED: ACYCLOVIR INJ 850 MG in SODIUM CHLORIDE 0.9% 250 ML IV STA (20:00)
[2023-08-25] MEDS ORDERED: SODIUM CHLORIDE 0.9% 1,000 ML IV STA (23:22)
[2023-08-25] MEDS ORDERED: VANCOMYCIN INJ 1.75 GM in SODIUM CHLORIDE 0.9% 500 ML IV STA (23:22)
[2023-08-25] MEDS ORDERED: VANCOMYCIN 1 GM VIAL ONE (23:33)
[2023-08-26 00:56] VITALS: BP 139/84; O2SAT 96
[2023-08-26] MEDS ORDERED: ACYCLOVIR INJ 850 MG in SODIUM CHLORIDE 0.9% 250 ML IV SCH (04:00)
[2023-08-26] MEDS ORDERED: cefTRIAXone 2 GM VIAL IVP SCH (09:00)
== END 2023-08-26 00:52 | disposition short-term general hospital (02) ==
LOC: EDUNIT# → ED 14:47
DX: A87.9 Viral meningitis, unspecified (principal); E87.1 Hypo-osmolality and hyponatremia; R40.1 Stupor
CPT/HCPCS: 36415; 62270; 70450; 70486; 71045; 80048; 80053; 80306; 81001; 81599; 82533; 82945; 83605; 83690; 84157; 84295; 84300; 84443; 85025; 87040; 87070; 87205; 89051; 96365; 96375; 99285; A9270; J0133; J3370; 81003; 87086; 87529; 87633

== ENCOUNTER 2023-08-26 00:51 | Outpatient (CLI) | payer OTHER | END 2023-08-26 23:59 | disposition short-term general hospital (02) | LOC: EMS 00:51 | PROVIDERS: ATTEND Emergency Medicine | DX: A87.9 Viral meningitis, unspecified (principal); E87.1 Hypo-osmolality and hyponatremia; R41.0 Disorientation, unspecified; R46.4 Slowness and poor responsiveness | CPT/HCPCS: A0425; A0426 ==

== ENCOUNTER 2024-01-09 09:08 | Outpatient (CLI) | payer OTHER ==
--- NOTE | 2024-01-09 12:51 | MRI Report ---
PROCEDURE: Brain WO INDICATIONS: HIST OF INFECTION TECHNIQUE: Noncontrast axial T1 spin echo, axial T2 fast spin echo, sagittal and axial FLAIR, coronal T2 fast sp in echo, axial gradient echo, axial diffusion and ADC through the brain. COMPARISON: Correlation is made with prior head CT, 08/25/2023. FINDINGS: Image quality: Excellent. CSF Spaces: Basal cisterns are patent. No extra-axial fluid collections. There is asymmetry is seen of the ventricles, with the left lateral ventricle demonstrating mild ex vacuo dilatation. Brain: Generalized cystic encephalomalacia can be seen involving the anterior aspect of the left temp oral lobe. No intracranial masses or hemorrhage. Burgess/white matter interface is normal. Brainstem a ppears normal. Diffusion-weighted images demonstrate no acute ischemic insult. No chronic ischemic insults. Normal intravascular flow voids are present. Skull and face: Calvarium has normal marrow signal. Orbits appear normal. Sinuses: There is at least moderate mucosal thickening seen within the ethmoid air cells. Milder muco broderick thickening can be seen elsewhere within the paranasal sinuses. No significant abnormal fluid can be seen within the mastoid air cells. IMPRESSION: Generalized cystic encephalomalacia can be seen involving the anterior left temporal lobe, which is c onsistent with the given clinical history of infection. Associated ex vacuo dilatation can be seen of the left lateral ventricle. Reviewed by: Uli Horvath MD on 01/09/2024 11:50 AM [facility] Approved by: Uli Horvath MD on 01/09/2024 11:50 AM [facility] Station ID: [id number]
== END 2024-01-09 09:09 | disposition home or self-care (01) ==
LOC: DI 09:08
PROVIDERS: ATTEND Student in an Organized Health Care Education/Training Program
DX: G93.89 Other specified disorders of brain (principal)